=== PATIENT | female | born 1975 | race Caucasian/White ===

== ENCOUNTER → 2016-11-12 | Day surgery (SDC) | payer OTHER ==
[~2016-11-12] MED LIST: Bupivacaine 0.25% 30 ML SDV INJECT ONE; Iohexol 647 MG/ML 10 ML SDV IVPUSH ONE; methylPREDNISolone Acetate 80 MG/ML SDV IARTIC ONE
--- NOTE | 2016-11-13 07:43 | CR ---
INDICATION: Back pain, guidance for JUAN C at L3-4. C-ARM FLUOROSCOPY IN OR: 0.9 minutes C-arm fluoroscopy time was utilized in guidance for JUAN C, 22 images were obtained. Injection times 2 of iodinated contrast - Omnipaque 4 mL total, revealed epidural space injection site at L3-4. After JUAN C, there was no residual pain after the injection, where, prior to the injection, there had been a pain score of 9 out of 10. IMPRESSION: Satisfactory JUAN C utilizing fluoroscopic guidance. MTDD
--- NOTE | 2016-11-14 09:23 | ANES ---
DATE OF PROCEDURE: 11/12/2016 REFERRING PHYSICIAN: Johanny Mckeon CRNA REFERRING PRACTITIONER: Lowell Roberts MD PROCEDURE PERFORMED: JUAN C at L3-L4 under fluoroscopy. REFERRAL DIAGNOSES: Sciatica, foraminal narrowing, L5-S1. MRI RESULTS: Impression for MRI is there are degenerative changes, most prominently at L4-L5 and L5-S1. HISTORY: This is a 41-year-old female, who is moderately obese. She is 180 pounds and 5 feet 2 inches. She is alert and orientated, and she does appear to have acute back pain. The pain radiates all the way down her right leg to the side of her ankle. This started 2 months ago without injury. She said she was stretching at that time, and it was acute pain. She has had physical therapy. She does her exercises from physical therapy at home. She has done this for the past 3 weeks. It has helped, but her last session made it actually worse. She has seen a chiropractor, but that was several years ago, for chronic lower back pain. She takes naproxen twice a day. Her last dose was on Thursday. She does take Flexeril b.i.d., and she takes hydrocodone in the morning. Her pain scale today is 9/10. Skin condition is clear. There are no blemishes or scar. She does have a tattoo on her right upper back. She is using heat also to help relieve the pain. She has a negative cardiovascular system. She has a regular rate and rhythm today at a rate of 70. Her temperature is 97.9. Her oxygen saturation is 100%. Blood pressure is 117/75. Lungs area clear. She quit smoking this past August. When I watched her gait today, she walks mostly normally, but she does favor the left leg some, and she admits to this. When viewing her posture, she is midline from head to trochanters. Her posture is within normal limits. I did notice some lumbar lordosis when feeling her back. History of splenectomy and tubal as past surgeries. When watching the range of motion today, when she side bends, she did not have pain on the left side, she had some restrictions and pain on her right side. When doing rotation, she had no restriction when rotating to left, but she had some restrictions on the right with pain. Unrestricted flexion and some restriction doing extension. When watching the patient walk today, she is able to walk on her toes without pain. When she is walking on her heels with her feet inverted, she had quite a bit of pain and difficult to do. When she walked on her heels with the feet in the neutral position, she had moderate pain and it was difficult for her to do this. In the sitting position, when evaluating L4, I had the patient dorsiflex and invert while I put force into her plantarflexion with eversion, she was negative on the left side and positive on the right side. When I held all but her great toe and I had her dorsiflex, she was a 5/5 on the left and 3/5 on the right. When I opposed dorsiflexion on the great toe, she was 5/5 on the left and 3/5 on the right. When I had the patient in a seated position, checking T12-L3, I stabilized her pelvis and I had her raise her thigh off the table and knee to ceiling, she was 5/5 on the left and 3/5 on the right; she did have pain on the right, but not on the left side. Checking L2, L3, and L4 quadriceps when I placed one hand above her knee and I provided resistance to her lower leg, as she raised lower leg, she was 5/5 left and 3/5 right; she did have pain on her right side and no pain on her left side. Checking S1, having the patient plantarflex and joselo against resistance, I had a 5/5 on the left and 3/5 on the right, she had pain on the right and mild on the left. In the supine position, checking her straight leg raise, she had pain on her right side and she had none on the left. When I did a contralateral straight leg raise, she did have pain on the right while lifting the left. Her Omid's test was negative bilaterally. Her pelvic compression test was negative on the left, and she did have some pain on the right back and radiating into the thigh. On lateral position testing, she was 3/5 on the right, when I had her on her side abducting while I had resistance, and she was 4/5 on the left. In the prone position, difficult turning to prone, fairly comfortable in prone position, she was a 3/5 on the right with pain, and she was a 5/5 on the left. Reverse straight leg test was negative on the left side, and she did have pain on her right anterior thigh on the right side. PROCEDURE IN DETAIL: We did receive informed consent. All risks were explained to the patient. According to the informed consent, the patient was informed that she had at least a 2% to 3% risk of getting a severe headache from the procedure. The patient reviewed consent and agreed to proceed with her signature. The patient walked back to [facility] and time-out was performed. Total fluoroscopy time today is 0.4 minutes with 72 mGy. I had the patient in a sitting position, and a Betadine prep x3 was performed and a sterile drape was placed on the patient's back. Fluoroscopy did confirm interspaces. Lidocaine 1% was used, a total of 5 mL with subcu needle and a 1 1/2 inch needle to numb the back. A 17-gauge Tuohy was advanced until loss of resistance. Fluoroscopy was performed with 1 mL of contrast. I noticed some contrast being in tissue prior to epidural space and advanced the needle slightly. Another 2 mL of contrast was injected, had good up and down flow at this point. The patient has had some mild paresthesia on the left side throughout the procedure and always went away when the needle was not being advanced. At this point, we injected Depo-Medrol 80 mg with 6 mL of preservative-free 0.25% Marcaine. The needle was withdrawn and back was cleansed. The patient walked back to her room with significantly less pain in her back at this point. Within 15 to 20 minutes, I reviewed with the patient the signs of complications and to call if she had these. I also gave her a pain diary and informed her to fill it out in the next month, rating her pain and to see how this injection is helping throughout the days coming up. The patient was given instructions and left in good spirits. /[id number] CONCEPCION/GABRIELE NEGRETE
== END ==
LOC: FB.SDS 07:40
PROVIDERS: ATTEND Nurse Anesthetist, Certified Registered
DX: M51.37 Other intervertebral disc degeneration, lumbosacral region (principal)
CPT/HCPCS: 62323; 76000; J1040; Q9967; J3490

== ENCOUNTER → 2016-12-26 | Day surgery (SDC) | payer OTHER ==
--- NOTE | 2016-12-26 12:09 | CR ---
INDICATION: Back pain, JUAN C for L3-4. C-ARM FLUOROSCOPY IN OR FOR GUIDANCE OF SPINE INJECTION: 0.9 minutes C-arm fluoroscopy time was utilized in OR for placement of the needle at the L3-4 interspace posteriorly. Epidural injection of 1 mL Omnipaque 370 is noted. The patients pain prior to the JUAN C was 6 out of 10. It became 1 out of 10 after the injection. IMPRESSION: Satisfactory JUAN C utilizing C-arm guidance. MTDD
--- NOTE | 2016-12-30 08:34 | ANES ---
DATE OF PROCEDURE: 12/26/2016 REFERRING PHYSICIAN: Lowell Roberts MD PROCEDURE: Epidural steroid injection at L3-L4 under fluoroscopy. REFERRAL DIAGNOSIS: Sciatica, second injection. MRI results are listed when she had this done last August. BACK PAIN HISTORY: This is a 41-year-old female, moderately obese, approximately 180 pounds. She is 5 feet 2 inches. She is alert and oriented. She does appear to have some pain today, not as acute as when I saw her in August. In August, she was rating her pain at 9 to 10 and could not sit still without having pain. Today, it is a 6 and she is able to sit still. The pain radiates all the way down her right leg to the side of her ankle. This pain is less than in August. The pain started 2 months prior to August without injury. She has had physical therapy since her injury. She stopped approximately 3 weeks ago. It has helped. She will continue with exercises. She is scheduled to see a neurosurgeon within the next month or two, has a referral to do so, and then will decide if she wants more physical therapy at that point. She has also seen a chiropractor several years ago for chronic lower back pain. She presently is taking Naproxen once a day, hydrocodone once a day, and she believes the other medication she is taking once a day is Celebrex. She has recently lost 6 pounds in the past 2 weeks due to a diet. Her vital signs today is 132/78. Her temperature is 98.1. Her oxygen saturation is 98. Respirations are 16. Her heart rate is 101. She has a negative cardiovascular history, negative lung history. Regular rate and rhythm for heart, and lungs are clear today. SCREENING EXAM: The patient had a thorough exam in August, states her pain has not changed in location, but is less pain than what she was having in August, so she declined to have a full exam today. INFORMED CONSENT: Did receive consent from the patient, explaining all risks, including the risk of having a headache that could last a week to two. The patient signed consent, accepting all risks of the procedure and would like to proceed with the procedure. SUMMARY OF PROCEDURE: The patient walked back to the operating room, rating her pain at about 6/10. A procedure time-out was done. Total fluoroscopy time today was 0.9 minutes and the milligray was 14.9. After the time-out was performed, we had the patient in a sitting position. X-ray identified with fluoroscopy her L3-L4 interspace. Her back was prepped with Betadine x3 swabs and a sterile drape was placed. Lidocaine 1%, 5 mL was injected into the L3-L4 area. A #17-gauge Tuohy was introduced. Bony prominence with several attempts. lidocaine 1% of 5 mL injected slightly lower in the L3-L4 interspace, #17-gauge Tuohy advanced. The needle was mostly into the back when receiving loss of resistance. Omnipaque 1 mL was injected, and fluoroscopy was performed, showing some up and down movement of the dye into the epidural space. Needle advance slightly, and needle bevel was directed toward her right side. Depo-Medrol 80 mg ,Marcaine 0.25 mL 6ml. preservative-free was injected into the epidural space. Needle was removed. No CSF, no blood, no paresthesia was reported during the procedure. Back was washed off and Band-Aid placed. POST PROCEDURE: The patient stood up and said the pain was down to a 2. After walking back to her room, she said there was no paresthesia anymore that she had had prior to the procedure on that right side, and that pain was at 1 to 2. DISCHARGE INSTRUCTIONS: patient should call with any concerns of fever, worsening back pain, any weakness in the legs. The patient left walking with pain at 1, and there is no paresthesia in that right leg. /[id number] HG/MODL MTDD
== END ==
LOC: FB.SDS 08:56
PROVIDERS: ATTEND Orthopaedic Surgery
DX: M54.31 Sciatica, right side (principal); E66.9 Obesity, unspecified
CPT/HCPCS: 62323; 77003; J1040; Q9967; J3490